=== PATIENT | male | born 2000 | race Caucasian/White ===

== ENCOUNTER 2019-06-12 11:37 | Emergency (ER) | payer OTHER ==
[~2019-06-12] VITALS: Ht 172.7 cm; Wt 85.8 kg
[2019-06-12 13:25] LABS: MEAN CORPUSCULAR HEMOGLOBIN 29.1 pg (27.0-33.0); MEAN CORPUSCULAR HGB CONC 33.3 g/dl (32.0-36.5); MEAN CORPUSCULAR VOLUME 87.4 fl (80.0-96.0); PLATELET COUNT, AUTOMATED 213 10^3/uL (150-450); RED BLOOD COUNT 5.49 10^6/uL (4.30-6.10); WHITE BLOOD COUNT 6.6 10^3/uL (4.0-10.0)
[2019-06-12 13:56] LABS: ALBUMIN 4.4 GM/DL (3.2-5.2); ALT/SGPT 40 U/L (12-78); BILIRUBIN,TOTAL 0.5 MG/DL (0.2-1.0); BLOOD UREA NITROGEN 15 MG/DL (7-18); CALCIUM LEVEL 9.4 MG/DL (8.5-10.1); CARBON DIOXIDE LEVEL 28 MEQ/L (21-32); CHLORIDE LEVEL 106 MEQ/L (98-107); CREATININE FOR GFR 0.94 MG/DL (0.70-1.30); GLUCOSE, FASTING 84 MG/DL (70-100); POTASSIUM SERUM 4.2 MEQ/L (3.5-5.1); SODIUM LEVEL 139 MEQ/L (136-145); TOTAL PROTEIN 7.8 GM/DL (6.4-8.2)
[2019-06-12 14:26] VITALS: BP 133/66
[2019-06-12] MEDS ORDERED: ANUS25SU PR (14:26)
[2019-06-12] MEDS ORDERED: TYLETAB14 PO (14:26)
[2019-06-12] MEDS ORDERED: COLA100C5 PO (14:26)
== END 2019-06-12 14:33 | disposition home or self-care (01) ==
LOC: M ED 11:37
DX: K64.9 Unspecified hemorrhoids (principal); K62.89 Other specified diseases of anus and rectum

== ENCOUNTER 2021-10-02 08:33 | Emergency (ER) | payer OTHER ==
[~2021-10-02] VITALS: Ht 172.7 cm; Wt 95.8 kg
[~2021-10-02 08:33] MED LIST: ANUS25SU PR; COLA100C5 PO; TYLETAB14 PO
[2021-10-02 10:31] VITALS: BP 128/68
== END 2021-10-02 10:32 | disposition home or self-care (01) ==
LOC: M ED 08:33
DX: J06.9 Acute upper respiratory infection, unspecified (principal); Z20.822 Contact with and (suspected) exposure to COVID-19
CPT/HCPCS: 87880; 99283; U0003